=== PATIENT | male | born 1965 | race Caucasian/White ===

== ENCOUNTER 2017-04-04 04:33 | Observation (INO) | payer OTHER ==
[~2017-04-04] VITALS: Ht 175.3 cm; Wt 89.1 kg
[2017-04-04 04:40] VITALS: Ht 175.3 cm; Wt 89.1 kg
[2017-04-04 05:08] LABS: PLATELET COUNT 202 x10^3mcL (130-400)
[2017-04-04 05:18] LABS: CALCIUM 9.4 mg/dL (8.5-10.1); CARBON DIOXIDE 30.6 mmol/L (21-32); CHLORIDE SERUM 99 mmol/L (98-107); GFR1 > 60 mL/min; GLUCOSE SERUM 143 mg/dL (74-106); POTASSIUM SERUM 3.8 mmol/L (3.5-5.1); SODIUM SERUM 134 mmol/L (136-145)
[2017-04-04 05:21] LABS: ALBUMIN 3.5 g/dL (3.4-5.0); ALKALINE PHOSPHATASE 83 U/L (46-116); ALT/SGPT 26 U/L (16-63); AST/SGOT 18 U/L (15-37); BILIRUBIN TOTAL 1.01 mg/dL (0.20-1.00); LIPASE 258 IU/L (73-393); TOTAL PROTEIN, SERUM 7.6 g/dL (6.4-8.2)
[2017-04-04] MEDS ORDERED: HYDROCHLOROTHIA25 MG PO (06:19)
[2017-04-04] MEDS ORDERED: SIMVASTATIN20 M1 PO (06:19)
[2017-04-04] MEDS ORDERED: ZESTRIL20 MG PO (06:19)
[2017-04-04 08:01] LABS: CHOLESTEROL/HDL RATIO 4.3; MAGNESIUM 1.9 mg/dL (1.8-2.4); PHOSPHOROUS 3.1 mg/dL (2.5-4.9)
[2017-04-04 08:09] LABS: FREE T4 1.26 ng/dL (0.76-1.46); FREE THYROXINE INDEX 3.8 ug/dL (1.4-4.5); T4(THYROXINE) 10.1 ug/dL (4.7-13.3)
[2017-04-04 08:21] LABS: UA SPECIFIC GRAVITY 1.015 (1.005-1.035); microscopic required? YES; urine erythrocyte 1+ (NEGATIVE)
[2017-04-04 08:26] LABS: T3 TOTAL 1.22 ng/mL
[2017-04-04 08:49] LABS: AMPHETAMINE QUAL UR NONE DETECTED (NEG <=1000)
[2017-04-04 11:38] VITALS: BP 141/84
[2017-04-04 13:09] VITALS: BP 114/73
[2017-04-04 16:58] VITALS: BP 113/78
[2017-04-04 20:11] VITALS: BP 120/72
[2017-04-05 05:45] VITALS: BP 143/78
[2017-04-05 05:46] VITALS: BP 110/75
[2017-04-05 06:47] LABS: BASOPHIL % 0.4 % (0-2); PLATELET COUNT 173 x10^3mcL (130-400); RED CELL DISTRIBUTION WIDTH 13.1 % (11.5-14.5)
[2017-04-05 07:17] LABS: CALCIUM 8.6 mg/dL (8.5-10.1); CARBON DIOXIDE 27.3 mmol/L (21-32); CHLORIDE SERUM 105 mmol/L (98-107); GFR1 > 60 mL/min; GLUCOSE SERUM 90 mg/dL (74-106); MAGNESIUM 1.9 mg/dL (1.8-2.4); POTASSIUM SERUM 4.2 mmol/L (3.5-5.1); SODIUM SERUM 140 mmol/L (136-145)
[2017-04-05 07:38] LABS: PHOSPHOROUS 3.1 mg/dL (2.5-4.9)
[2017-04-05 09:55] VITALS: BP 119/81
[2017-04-05] MEDS ORDERED: ACETAMINOPHEN-H1 TA1 PO (10:10)
[2017-04-05 10:22] VITALS: BP 119/81
== END 2017-04-05 13:19 | disposition home or self-care (01) | DRG 439 ==
LOC: ED 04:33 → DU 06:17
PROVIDERS: Emergency Medicine; Family Medicine
DX: K85.90 Acute pancreatitis without necrosis or infection, unspecified (principal); E87.1 Hypo-osmolality and hyponatremia; I10 Essential (primary) hypertension; R31.29 Other microscopic hematuria; F10.10 Alcohol abuse, uncomplicated; E78.5 Hyperlipidemia, unspecified; Z68.29 Body mass index [BMI] 29.0-29.9, adult
CPT/HCPCS: 83880; 84439; G0378; G0480; J1885; J2270; J2405; J7030; Q0092